=== PATIENT | male | born 1995 | race Caucasian/White ===

== ENCOUNTER 2017-11-07 09:26 | Emergency (ER) | payer OTHER ==
[2017-11-07] MEDS: ONDANSETRON 4MG/2ML VIAL (J2405) IV (10:31)
[2017-11-07] MEDS: NS 1,000 ML IV (10:31)
[2017-11-07] MEDS: MORPHINE 4 MG/ML 1ML VIAL/SYRINGE (J2270) IV (10:32)
[2017-11-07] MEDS: GASTROGRAFIN SOLUTION 30ML PO ×2 (10:42→11:49)
[2017-11-07 10:51] LABS: BASO % 0.4 % (0.0-1.0); EOS # 0.2 10^3/uL (0.0-0.50); EOS % 3.7 % (0.0-3.0); HEMATOCRIT 46.4 % (42.0-52.0); HEMOGLOBIN 16.3 g/dl (13.5-17.5); IMMATURE GRANULOCYTE % 0.2 % (0-3.0); LYMPH # 1.8 10^3/uL (1.5-6.5); LYMPH % 35.5 % (24.0-44.0); MEAN CORPUSCULAR HGB CONC 35.1 g/dl (32.0-36.5); MEAN CORPUSCULAR VOLUME 88.4 fl (80.0-96.0); MONO # 0.4 10^3/uL (0.0-0.8); MONO % 8.1 % (0.0-5.0); NEUTROPHILS # 2.6 10^3/uL (1.8-7.7); NEUTROPHILS % 52.1 % (36.0-66.0); PLATELET COUNT, AUTOMATED 173 10^3/uL (150-450); RED BLOOD COUNT 5.25 10^6/uL (4.30-6.10); RED CELL DISTRIBUTION WIDTH 12.4 % (11.5-14.5); WHITE BLOOD COUNT 4.9 10^3/uL (4.0-10.0)
[2017-11-07 10:54] LABS: ALBUMIN 4.3 GM/DL (3.2-5.2); ALBUMIN/GLOBULIN RATIO 1.43 (1.00-1.93); ALKALINE PHOSPHATASE 66 U/L (45-117); ALT/SGPT 31 U/L (12-78); ANION GAP 8 MEQ/L (8-16); AST/SGOT 17 U/L (7-37); BILIRUBIN,TOTAL 1.4 MG/DL (0.2-1.0); BLOOD UREA NITROGEN 11 MG/DL (7-18); CALCIUM LEVEL 9.2 MG/DL (8.5-10.1); CARBON DIOXIDE LEVEL 27 MEQ/L (21-32); CHLORIDE LEVEL 106 MEQ/L (98-107); CREATININE FOR GFR 1.21 MG/DL (0.70-1.30); GLOMERULAR FILTRATION RATE > 60.0 (>60); GLUCOSE, FASTING 84 MG/DL (70-100); LIPASE 125 U/L (73-393); POTASSIUM SERUM 4.1 MEQ/L (3.5-5.1); SODIUM LEVEL 141 MEQ/L (136-145); TOTAL PROTEIN 7.3 GM/DL (6.4-8.2)
[2017-11-07] MEDS: METOCLOPRAMIDE INJ 10MG/2ML VIAL (J2765) IV (11:23)
[2017-11-07] MEDS: fentaNYL 100 MCG/2 ML INJECTION (J3010) IV (11:36)
[2017-11-07] MEDS ORDERED: ISOVUE-370 76% 100ML VIAL (Q9967) As Ordered (11:50)
[2017-11-07 11:55] LABS: BILIRUBIN, URINE MANUAL NEGATIVE (NEGATIVE); BLOOD URINE MANUAL RFX NEGATIVE (NEGATIVE); GLUCOSE, URINE (UA) MANUAL NEGATIVE (NEGATIVE); KETONE, URINE MANUAL NEGATIVE (NEGATIVE); MICROSCOPIC INDICATED? RFX NO (NO); NITRITE, URINE MANUAL RFX NEGATIVE (NEGATIVE); PROTEIN, URINE MANUAL REFLEX NEGATIVE (NEGATIVE); SP GRAVITY,URINE MANUAL REFLEX 1.005 (1.002-1.035); UROBILINOGEN, URINE MANUAL NORMAL (NORMAL)
== END 2017-11-07 12:43 | disposition home or self-care (01) ==
LOC: M ED 09:26
DX: R10.31 Right lower quadrant pain (principal); R11.0 Nausea; R19.7 Diarrhea, unspecified; F17.210 Nicotine dependence, cigarettes, uncomplicated
CPT/HCPCS: J2270

== ENCOUNTER 2019-04-23 07:13 | Emergency (ER) | payer OTHER ==
[~2019-04-23] VITALS: Ht 188 cm; Wt 88.0 kg
[~2019-04-23 07:13] MED LIST: CYCL10TA PO; ZOFR4TAB14 PO
[2019-04-23] MEDS ORDERED: IBUP-1022 (07:19)
[2019-04-23] MEDS ORDERED: NORCO, ANEXSIA 5/325MG TABLET (HYDROcodone/ACETAMINOPHEN) PO ONE (07:45)
--- NOTE | 2019-04-23 08:09 | REP ---
Clinical: Trauma. Fall. . Technique: AP, lateral, bilateral oblique, and coned-down views. Findings: Alignment and lordosis is maintained. The vertebral bodies including transverse process and spinous processes are intact and normal. There is no evidence for acute fracture / compression injury or subluxation. No evidence for spondylolysis or spondylolisthesis. No significant degenerative change is noted. Impression: Normal lumbosacral spine radiograph series. Electronically Signed by Carter Donato MD 04/23/2019 08:00 A
[2019-04-23 08:46] VITALS: BP 121/73
== END 2019-04-23 08:56 | disposition home or self-care (01) ==
LOC: M ED 07:13
DX: M79.604 Pain in right leg (principal); F17.200 Nicotine dependence, unspecified, uncomplicated

== ENCOUNTER 2019-09-26 17:30 | Day surgery (SDC) | payer OTHER ==
[~2019-09-26] VITALS: Ht 188 cm; Wt 86.2 kg
[~2019-09-26 17:30] MED LIST changes: +CYCL-707 PO; -CYCL10TA PO; +CelecoXIB 400 MG CAP PO ONE; +IBUP-1022; +KETOROLAC 60MG 2ML VIAL As Ordered ONE; +LIDOCAINE 1% MDV 20ML VIAL SQ PRN; +LR 1,000 ML IV ONE; +PERCOCET 5MG/325MG TAB PO ONE; +ceFAZolin SOD 2 GM in IV 1 EA IV ONE
--- NOTE | 2020-01-14 10:04 | RO ---
DATE OF OPERATION: 09/26/2019 PREOPERATIVE DIAGNOSIS: Right L5-S1 herniated nucleus pulposus. POSTOPERATIVE DIAGNOSIS: Right L5-S1 herniated nucleus pulposus. INTRAOPERATIVE FINDINGS: Large herniated disc. PROCEDURE(S) PERFORMED: Microdiscectomy right side L5-S1. SURGEON: Willy Samayoa MD. SHOWER ATTENDANT: MIK Arellano. ANESTHESIA: General. SPECIMEN: Disc material. ESTIMATED BLOOD LOSS: Less than 50 mL replaced with crystalloid. DRAINS: None. COMPLICATIONS: None. INDICATIONS: Right lower extremity radicular discomfort ___ radiation. Patient elects for operative intervention. We had a ilya discussion of pathology involved, procedure proposed, alternatives including doing nothing, risks including but no limited to pain, failure, infection, need for more surgery, and other issues. OPERATIVE COURSE: Identified in holding area, site and side verified, and brought to the operating room. Once anesthesia was administered, he was positioned on the Fabiano frame for exposure of the lumbar spine. Axillary rolls were utilized. Next, prepped and draped in the usual fashion. Time-out was accomplished. I stood on the patients right and Mr. Leung stood on the patients left. I utilized 3.5 loop magnification and a head lamp followed by an operating microscope, which was sterilely draped. Next, an incision midline over L5-S1 developed down through the skin and subcuticular tissues to the posterior lumbar fascia and developed down the lamina exposing the lamina at L5-S1. Divot drilled into the posterior lamina and a Santos Andrew probe placed in the divot. Cross table lateral taken to verify our location. Further dissection to expose L5-S1. At this point, microscope was brought in for remaining portion of the procedure. A high-speed ishaan was utilized to implement the right unilateral laminotomy of L5-S1 exposing the bare area at 5. Curettes were utilized to elevated ligamentum flavum, which was removed using #2 and 3 Kerrisons exposing the thecal sac. Santos Andrew probe was used to protect and sweep the nerve root away from the disc herniation. Herniated disc material was removed by opening posterior longitudinal ligament and annulus and removing it with Castro pituitaries. Irrigation was accomplished and bipolar cautery was utilized for hemostasis. No cerebrospinal fluid (CSF) leak noted. No active bleeding noted. Retractors removed. Posterior lumbar fascia reapproximated with interrupted stitch. Deep dermis and skin approximated with interrupted stitch and then a Prineo dressing. Patient log rolled to hospital bed and moved to the recovery room in good condition. For further details, please refer to the medical record. Please note, this is a reconstituted dictation due to the malware pathology afflicting the computer system and that is the reason for the delay. BORIS
== END 2019-09-27 08:40 | disposition home or self-care (01) ==
LOC: M SDC 17:30
PROVIDERS: ATTEND Orthopaedic Surgery
DX: M51.26 Other intervertebral disc displacement, lumbar region (principal); K21.9 Gastro-esophageal reflux disease without esophagitis; R06.83 Snoring; F17.218 Nicotine dependence, cigarettes, with other nicotine-induced disorders
CPT/HCPCS: 63030; 88304; J1885